=== PATIENT | male | born 1990 | race African-American/Black ===

== ENCOUNTER 2017-04-15 21:57 | Emergency (ER) | payer SELFPAY ==
[2017-04-15] MEDS ORDERED: Naproxen 500 MG TAB ONE (23:51)
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
== END 2017-04-16 01:30 | disposition home or self-care (01) ==
LOC: MADERS 21:57
DX: T07.XXXA Unspecified multiple injuries, initial encounter (principal); V49.9XXA Car occupant (driver) (passenger) injured in unspecified traffic accident, initial encounter
CPT/HCPCS: 72100